=== PATIENT | female | born 2000 | race African-American/Black ===

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

== ENCOUNTER → 2021-11-14 | Outpatient (CLI) | payer SELFPAY | LOC: M LABSMTC 09:52 | PROVIDERS: ATTEND Pediatrics | DX: Z20.822 Contact with and (suspected) exposure to COVID-19 (principal) ==